=== PATIENT | male | born 1955 | race Caucasian/White ===

== ENCOUNTER → 2023-10-03 09:18 | Outpatient (CLI) | payer MEDICARE, OTHER, SELFPAY ==
--- NOTE | 2023-10-03 | DI.RAD.S_ITS ---
PROCEDURE: XR ABDOMEN 1V INDICATIONS: ABD PAIN TECHNIQUE: One view of the abdomen acquired. COMPARISON: None. FINDINGS: Surgical changes and devices: None. Bowel: Limited view of the lower abdomen demonstrates nonobstructive bowel gas pattern. Soft tissues: No suspicious abdominal calcifications. Visualized solid organ contours appear normal in size. Bones: No suspicious bony lesions. IMPRESSION: No acute abnormality. Approved by: Krystal Clifford M.D. on 10/03/2023 at 14:04
[2023-10-03 10:30] LABS: Add Manual Diff / Slide Review NO; Basophils Absolute Auto 100 /uL (0-100); Basophils Percent Auto 1.1 % (0-2); Eosinophils Absolute Auto 100 /uL (0-450); Hematocrit 39.8 % (41-53); Hemoglobin 13.5 g/dL (13.5-17.5); Lymphocytes Absolute Auto 1400 /uL (1100-4500); Lymphocytes Percent Auto 24.7 % (25-40); Mean Corpuscular HGB Conc 33.9 % (30-36); Mean Corpuscular Hemoglobin 31.5 PG (26-34); Monocytes Absolute Auto 600 /uL (0-900); Neutrophils Absolute Auto 3500 /uL (1500-7000); Neutrophils Percent Auto 62.2 % (50-75); Platelet Count 284 X10^3/uL (150-400); Red Blood Cell Count 4.28 X10^6/uL (4.5-5.9); Red Cell Distribution Width 13.5 % (11.6-14.8); White Blood Cell Count 5.6 X10^3/uL (4.5-11.0)
[2023-10-03 11:02] LABS: Alanine Aminotransferase 25 IU/L (<50); Albumin 4.1 g/dL (3.5-5.0); Albumin Globulin Ratio 1.5 (1.0-2.8); Alkaline Phosphatase 66 U/L (38-126); Amylase 77 U/L (30-110); Aspartate Aminotransferase 23 IU/L (17-59); BUN Creatinine Ratio 17.8 (6-22); Bilirubin Total 0.6 mg/dL (0.2-1.3); Blood Urea Nitrogen 18 mg/dL (9-20); Calcium 9.5 mg/dL (8.4-10.2); Carbon Dioxide 27 mmol/L (22-32); Chloride 104 mmol/L (98-107); Estimated Glomerular Filt Rate > 60 mL/min (>60); Globulin 2.8 g/dL (1.7-4.1); Glucose 99 mg/dL (80-110); HEMOLYSIS < 15 (0-50); Lipase 146 U/L (23-300); Potassium 4.2 mmol/L (3.4-5.1); Sodium 137 mmol/L (137-145); Total Protein 6.9 g/dL (6.3-8.2)
== END ==
PROVIDERS: Referring Provider Family Medicine; Visit Provider Family Medicine
DX: R10.84 Generalized abdominal pain (principal)
CPT/HCPCS: 36415; 74018; 80053; 82150; 83690; 85025

== ENCOUNTER → 2023-12-16 10:15 | Outpatient (CLI) | payer MEDICARE, OTHER, SELFPAY ==
--- NOTE | 2023-12-16 10:18 | DI.RAD.S_ITS ---
PROCEDURE: XR ACUTE ABDOMEN SERIES INDICATIONS: ABD PAIN TECHNIQUE: One view chest and two views of the abdomen were acquired. COMPARISON: [facility], , XR ABDOMEN 1V, 10/03/2023, 11:15. FINDINGS: Surgical changes and devices: None. Chest: Lungs are clear. Heart size is normal. No pleural effusions. No pneumoperitoneum. Abdomen: Bowel gas pattern is normal. No suspicious calcifications. Visualized solid organ contours appear normal. Bones: No suspicious bony lesions. Bilateral hip degenerative changes. Stable oval sclerotic focus over the superior left acetabulum likely representing a bone island. IMPRESSION: Chest and abdomen without acute radiographic abnormalities. Dictated by: Ronaldo Sánchez M.D. on 12/16/2023 at 13:07 Approved by: Ronaldo Sánchez M.D. on 12/16/2023 at 13:10
== END ==
LOC: RAD 10:17
PROVIDERS: Referring Provider Internal Medicine Gastroenterology; Visit Provider Internal Medicine Gastroenterology
DX: K59.00 Constipation, unspecified (principal); R63.4 Abnormal weight loss; R68.81 Early satiety; R10.13 Epigastric pain
CPT/HCPCS: 74022

== ENCOUNTER 2024-01-12 13:58 | Day surgery (SDC) | payer MEDICARE, SELFPAY ==
--- NOTE | 2024-01-12 | PATH_ITS ---
[facility] Accession Number: [id number] No. of containers..03 Tissue . 01 Material submitted: . PART A: duodenum - DUODENUM PART B: gastrointestinal site - ANTRUM PART C: esophagus, E-G Junction - GE JUNCTION . 01 Diagnosis: A. DUODENUM, BIOPSY: Duodenal mucosa with no diagnostic abnormality. Negative for active inflammation, features of sprue, dysplasia, or malignancy. . B. STOMACH, ANTRUM, BIOPSY: Antral and body-type mucosa with mild chronic gastritis. Negative for Helicobacter by immunohistochemistry. Negative for intestinal metaplasia. Negative for dysplasia and malignancy. . C. GASTROESOPHAGEAL JUNCTION, BIOPSY: Squamocolumnar junctional mucosa with specialized intestinal metaplasia, consistent with Osuna's esophagus. Mild active inflammation consistent with reflux esophagitis. Negative for dysplasia and malignancy. [facility] 01/14/2024 1441 Local . 01 Electronically signed: . Kiarra Santoyo MD, Pathologist NPI- [id number] . 01 Gross description: . Part A: DUODENUM: Received in formalin are 2 fragment(s) of ybarra, soft tissue measuring 0.2 x 0.2 x 0.2 cm to 0.3 x 0.2 x 0.2 cm submitted entirely in 1 cassette(s) Part B: ANTRUM: Received in formalin are 2 fragment(s) of ybarra, soft tissue measuring 0.2 x 0.2 x 0.2 cm to 0.3 x 0.2 x 0.2 cm submitted entirely in 1 cassette(s) Part C: GE JUNCTION: Received in formalin are 2 fragment(s) of ybarra, soft tissue measuring 0.1 x 0.1 x 0.1 cm to 0.2 x 0.2 x 0.2 cm submitted entirely in 1 cassette(s) /TAL 01/13/2024 2156 Local . 01 Microscopic: . B. An immunohistochemical stain was performed to evaluate for Helicobacter organisms and is negative. The control stain showed appropriate reactivity. . * This test was developed and its performance characteristics determined by [facility]. It has not been cleared or approved by the U.S. Food and Drug Administration. The FDA has determined that such clearance or approval is not necessary. This test is used for clinical purposes. It should not be regarded as investigational or for research. . 01 Pathologist provided ICD-10: K22.70 . 01 CPT . 843351, 088245, 188522, [id number] Specimen Comment: A courtesy copy of this report has been sent to [phone] Performed at: 01 [facility] [address] [place] [address], [place], [place] [id number] MD Jeremy Otto MD Phone: [phone]
[2024-01-12 14:51] VITALS: BP 117/69; PULSE 70; RESP 16; TEMP 36.3; O2SAT 97
--- NOTE | 2024-01-12 15:01 | PM.HP.1 ---
History of Present Illness History of Present Illness Date Patient Seen: 01/12/24 Time Patient Seen: 15:01 Chief complaint: EGD/Colonoscopy Narrative: 68-year-old male with early satiety, weight loss, epigastric pain, constipation here for diagnostic upper and lower endoscopy. I reviewed my recent office note. No significant changes. [facility] Surgical History Status post knee surgery Family History Father Heart disease Grandfather Diabetes mellitus Mother Smoker Social History Smoking Status: Never smoker alcohol intake: never Meds Home Medications and Allergies Home Medications Medication Instructions Recorded Confirmed Type aspirin 81 mg chewable tablet 81 mg PO QDAY ##0 12/10/16 History cholecalciferol (vitamin D3) 25 1,000 unit PO QDAY ##0 12/10/16 History mcg (1,000 unit) tablet (Vitamin D3) ciprofloxacin HCl 500 mg tablet 500 mg PO BID #14 tabs 12/10/16 Rx (Cipro) metronidazole 500 mg tablet 500 mg OR BID #14 tabs 12/10/16 Rx Allergies Allergy/AdvReac Type Severity Reaction Status Date / Time No Known Allergies Allergy Unknown Verified 01/12/24 15:02 [NO KNOWN ALLERGIES] Review of Systems Review of Systems ROS: Yes All systems reviewed with the patient and are negative except as otherwise documented Exam Vital Signs (past 8 hours): - 01/12/24 14:51 Temperature 97.4 F L Pulse Rate 70 Respiratory Rate 16 Blood Pressure 117/69 Pulse Oximetry 97 Oxygen Delivery Method Room Air Oxygen Delivery Method Room Air Const General: cooperative HENWA Head: normal to inspection Eyes General: appearance normal, both eyes and all related structures Neck Neck: normal visual inspection Chest Chest: normal inspection of the chest Resp Effort & Inspection: normal respiratory effort Cardio Rate: regular rate GI Inspection: normal to inspection Skin General: no rashes or lesions noted Neuro General: patient alert and patient awake Extrem General: normal to inspection and no pedal edema Psych Appearance: grossly normal Assessment & Plan Assessment & Plan narrative: 68-year-old male with epigastric pain, early satiety, weight loss, constipation. Diagnostic upper and lower endoscopy is pursued today.
--- NOTE | 2024-01-12 15:02 | PM.PREOP ---
Pre-operative Note Interval Note History & Physical reviewed/Exam performed by Physician: Yes Changes to H&P: No ASA Class (for procedural sedation): II
[2024-01-12] MEDS: LACTATED RINGERS 1,000 ML 42 ML IV (15:03)
--- NOTE | 2024-01-12 16:28 | PM.OP.EC ---
Operative Date/Time/Diagnoses Date of procedure: 01/12/24 Time of procedure: 16:28 Pre-op diagnosis: Epigastric pain, early satiety, weight loss, constipation Post-op diagnosis: same Procedure & Clinicians Study performed: EGD with biopsies and colonoscopy Same procedure as scheduled: Yes Indications: Epigastric pain, early satiety, weight loss, constipation Surgeon: Maik Mcghee Procedure Notes SCOAP/Timeout: Done Procedure in detail: After the risks and benefits were explained, written and verbal informed consent was obtained. The patient was brought into the procedure room and placed into the left lateral decubitus position. Please see anesthesia notes for sedation details. The scope was introduced into the mouth through the bite block and advanced under direct visualization to the 2nd portion of the duodenum. The scope was slowly withdrawn carefully examining the mucosa for any defects or lesions. Retroflexed views were accomplished in the stomach. The stomach was decompressed, the scope was then removed from the patient who tolerated the procedure well. The patient was then turned around. A digital rectal examination was accomplished. The scope was introduced into the rectum and advanced to the cecum as identified by the appendiceal orifice and ileocecal valve. The scope was slowly withdrawn to carefully examine the mucosa for any defects or lesions. Multiple direct views were made through the dentate line for exclusion of pathology. The colon was decompressed. The scope was removed from the patient who tolerated the procedure well. Pediatric colonoscope Bowel prep adequate Scope withdrawal time: 8 minutes Sedation minutes: 31 Complications: none Impression: 1. Duodenal: This was visually normal from the bulb through to the 2nd portion. Random D2 biopsies were taken for exclusion of sprue. 2. Stomach: No ulcers no outlet obstruction no mass lesions. Mild erythema was noted in the antrum and therefore biopsies were taken for exclusion of H pylori infection. Retroflexed views of the LES were unremarkable. There was perhaps a very subtle sliding hiatal hernia and a Hill grade 2 flap valve. 3. Esophagus: The squamocolumnar junction generally correlated with the top of the gastric folds. GEJ was at roughly 35 cm from the incisors. There was a small sliding hiatal hernia. There was mild mucosal irregularity at the level of the Z-line/GE junction. Biopsies were therefore acquired from this location for histologic examination. The remainder of the esophagus was visually unremarkable. 4. Colon: The patient had extensive diverticulosis all throughout the left colon. There were scattered small diverticula in the right colon. Left colon was somewhat tortuous and the colon was overall mildly redundant. No strictures no mass lesions no significant colonic pathology appreciated throughout. Grade 1 internal hemorrhoids were noted on direct views. Endoscopic diagnosis 1. Small sliding hiatal hernia 2. Mild nonspecific GE junction mucosal irregularity 3. Mild gastropathy 4. Extensive diverticulosis 5. Grade 1 hemorrhoids 6. Otherwise visually unremarkable endoscopy. Post-procedure Plan for aftercare: 1. Await histology. 2. Titrate [id number]-[id number] fiber supplementation to the desired stool consistency and frequency. 3. Repeat colonoscopy 10 years for screening purposes. Disposition: PACU
[2024-01-12 16:29] VITALS: BP 108/66; PULSE 58; RESP 12; TEMP 36.1; O2SAT 97
[2024-01-12 16:34] VITALS: BP 106/64; PULSE 58; RESP 14; O2SAT 97
[2024-01-12 16:40] VITALS: BP 118/71; PULSE 55; RESP 14; O2SAT 98
[2024-01-12 16:45] VITALS: BP 127/67; PULSE 54; RESP 14; O2SAT 96
[2024-01-12 16:51] VITALS: BP 116/78; PULSE 60; RESP 14; O2SAT 98
== END 2024-01-12 17:05 | disposition home or self-care (01) ==
PROVIDERS: Referring Provider Internal Medicine Gastroenterology; Visit Provider Internal Medicine Gastroenterology
PROC: 0DJ08ZZ Inspection of Upper Intestinal Tract, Via Natural or Artificial Opening Endoscopic (ICD-10-PCS; CPT 43235; principal; 2024-01-12 15:00)
PROC: 0DJD8ZZ Inspection of Lower Intestinal Tract, Via Natural or Artificial Opening Endoscopic (ICD-10-PCS; CPT 45378; 2024-01-12 15:00)
DX: K59.00 Constipation, unspecified (principal); R10.13 Epigastric pain; R63.4 Abnormal weight loss; R68.81 Early satiety; K44.9 Diaphragmatic hernia without obstruction or gangrene; K57.30 Diverticulosis of large intestine without perforation or abscess without bleeding; K64.0 First degree hemorrhoids; K31.9 Disease of stomach and duodenum, unspecified; K29.50 Unspecified chronic gastritis without bleeding; K22.70 Barrett's esophagus without dysplasia; K20.90 Esophagitis, unspecified without bleeding
CPT/HCPCS: 45378; 43239; J2704

== ENCOUNTER → 2024-12-09 07:35 | Outpatient (CLI) | payer MEDICARE, SELFPAY | PROVIDERS: Family Provider Nurse Practitioner Family; PCP Nurse Practitioner Family; Referring Provider Nurse Practitioner Family; Visit Provider Nurse Practitioner Family | DX: R20.0 Anesthesia of skin (principal); R20.2 Paresthesia of skin; E78.5 Hyperlipidemia, unspecified; Z13.1 Encounter for screening for diabetes mellitus; Z11.59 Encounter for screening for other viral diseases; Z12.5 Encounter for screening for malignant neoplasm of prostate | CPT/HCPCS: 36415; 80053; 80061; 84153; 86803; 95886; 95909; G0103 ==

== ENCOUNTER → 2024-12-09 08:51 | Outpatient (CLI) | payer MEDICARE, SELFPAY ==
[2024-12-09 10:41] LABS: Alanine Aminotransferase 48 IU/L (<50); Albumin 4.5 g/dL (3.5-5.0); Albumin Globulin Ratio 1.7 (1.0-2.8); Alkaline Phosphatase 79 U/L (38-126); Aspartate Aminotransferase 41 IU/L (17-59); BUN Creatinine Ratio 14.4 (6-22); Bilirubin Total 0.8 mg/dL (0.2-1.3); Blood Urea Nitrogen 16 mg/dL (9-20); Calcium 9.5 mg/dL (8.4-10.2); Carbon Dioxide 26 mmol/L (22-32); Chloride 103 mmol/L (98-107); Cholesterol 229 mg/dL (140-199); Estimated Glomerular Filt Rate > 60 mL/min (>60); Globulin 2.7 g/dL (1.7-4.1); Glucose 105 mg/dL (80-110); HDL Cholesterol 55 mg/dL (40-60); HEMOLYSIS < 15 (0-50); LDL Cholesterol Calculated 149 mg/dL (<100); Potassium 4.3 mmol/L (3.4-5.1); Sodium 137 mmol/L (137-145); Total Protein 7.2 g/dL (6.3-8.2); Triglycerides 123 mg/dL (35-150); VLDL Cholesterol Calculated 25 mg/dL (2-30)
[2024-12-09 11:10] LABS: Prostate Specific Antigen 2.04 ng/mL (0.10-4.00)
[2024-12-09 15:34] LABS: Hep C Virus Ab w/Reflex Quant NEGATIVE s/c (NEGATIVE)
== END ==
PROVIDERS: Family Provider Nurse Practitioner Family; PCP Nurse Practitioner Family; Referring Provider Family Medicine; Visit Provider Family Medicine
DX: E78.5 Hyperlipidemia, unspecified (principal); Z13.1 Encounter for screening for diabetes mellitus; Z11.59 Encounter for screening for other viral diseases; Z12.5 Encounter for screening for malignant neoplasm of prostate
CPT/HCPCS: 36415; 80053; 80061; 84153; 86803